=== PATIENT | male | born 1945 | race Caucasian/White ===

== ENCOUNTER 2022-04-01 11:08 | Emergency (ER) | payer OTHER ==
[~2022-04-01] VITALS: Ht 177.8 cm; Wt 83.9 kg
[2022-04-01] MEDS ORDERED: LOSARTAN-HCTZ1 EACH PO (11:30)
== END 2022-04-01 14:40 | disposition home or self-care (01) ==
LOC: ER 11:08
DX: B34.9 Viral infection, unspecified (principal)